=== PATIENT | female | born 1950 | race Caucasian/White ===

== ENCOUNTER 2021-10-09 10:19 | Emergency (ER) | payer OTHER ==
[~2021-10-09] VITALS: Ht 175.3 cm; Wt 113.4 kg
[2021-10-09] MEDS ORDERED: MONTELUKAST SODI1 GM MC (10:30)
== END 2021-10-09 13:10 | disposition home or self-care (01) ==
LOC: ER 10:19
DX: M25.562 Pain in left knee (principal)